=== PATIENT | female | born 1965 | race Asian ===

== ENCOUNTER 2018-09-03 14:30 | Day surgery (SDC) | payer OTHER, SELFPAY ==
--- NOTE | 2018-09-03 | PATH_ITS ---
[facility] Accession Number: [id number] . 01 Material submitted: . PART A: POLYP AT 110CM PART B: POLYP AT 100CM PART C: POLYP AT 70CM . 02 Diagnosis: A. Colon, Polyp at 110 cm, Biopsy: Tubular adenoma. . B. Colon, Polyp at 100 cm, Biopsy: Tubular adenoma. . C. Colon, Polyp at 70 cm, Biopsy: Colonic mucosa with a prominent benign lymphoid aggregate and mild distortion of the architecture. Negative for dysplasia and malignancy. Additional levels were examined. MRV/09/06/2018 . 02 Electronically signed: . Rosa Isela France MD, Pathologist NPI- [id number] . 01 Gross description: . Part A: POLYP AT 110CM: Received in formalin is 1 fragment(s) of ferrer, soft tissue measuring 0.6 x 0.4 x 0.2 cm submitted entirely in 1 cassette(s) Part B: POLYP AT 100CM: Received in formalin is 1 fragment(s) of ferrer, soft tissue measuring 0.5 x 0.3 x 0.3 cm submitted entirely in 1 cassette(s) Part C: POLYP AT 70CM: Received in formalin are multiple fragment(s) of ferrer, soft tissue measuring 1.0 x 0.4 x 0.2 cm in aggregate submitted entirely in 1 cassette(s) /CKI /CKI . 02 Pathologist provided ICD-10: D12.6 . 02 CPT . 099160, [id number], 966165 Performed at: 01 [facility] [address], [place], [place] [id number] MD Twan Navarro MD Phone: [phone] Performed at: 02 [facility] [address] [place] [id number] MD Rosa Isela France MD Phone: [phone]
[2018-09-03 14:51] VITALS: BP 126/84; PULSE 88; RESP 16; TEMP 37; O2SAT 99; BMI 27.9
[2018-09-03] MEDS: SODIUM CHLORIDE 0.9% 1,000 ML 70 ML IV (15:22)
--- NOTE | 2018-09-03 15:33 | PM.HP.1 ---
History of Present Illness Date Patient Seen: 09/03/18 Time Patient Seen: 15:34 Chief complaint: [id number] Narrative: very pleasant and remarkably healthy 53-year-old lady here for her 1st screening colonoscopy. She denies any problems symptoms related to the function of her GI tract. She denies any family history of colon or GI malignancy. She reports she needs colonoscopy as part of a health maintenance program. Patient History Social History household members: spouse Family & Social History Social History: household members spouse Meds Home Medications Medication Instructions Recorded Confirmed Type No Known Home Medications 09/03/18 09/03/18 History Allergies Allergy/AdvReac Type Severity Reaction Status Date / Time No Known Drug Allergies Allergy Verified 09/03/18 14:47 Review of Systems Review of Systems All systems reviewed & are unremarkable except as noted in HPI and below Exam Vital Signs (past 8 hours): - 09/03/18 14:51 Temperature 98.6 F Pulse Rate 88 Respiratory Rate 16 Blood Pressure 126/84 Pulse Oximetry 99 Oxygen Delivery Method Room Air Narrative Exam Narrative: Very pleasant, well-nourished, and well-developed lady in no distress HEENT: Normocephalic and atraumatic, pupils equal round reactive to light accommodation with anicteric sclera lungs: Clear to auscultation bilaterally Heart: Regular rate and rhythm without murmur rub or gallop abdomen: Soft, nontender, active bowel sounds extremities: Warm and well perfused without edema Assessment & Plan Assessment & Plan narrative: screening colonoscopy in the setting of a very healthy 53-year-old lady. We discussed the risks and benefits of the procedure and the patient has expressed a desire to complete it today.
[2018-09-03] MEDS: fentaNYL 250 MCG/5 ML INJ IV (15:53)
[2018-09-03] MEDS: MIDAZOLAM 5 MG/5 ML VIAL IV (15:54)
--- NOTE | 2018-09-03 16:01 | PM.OP.1 ---
Operative Date/Time/Diagnoses Date of procedure: 09/03/18 Time of procedure: 16:01 Pre-op diagnosis: Screening Post-op diagnosis: same Procedure & Clinicians Procedure: colonoscopy to the cecum with cold forceps polypectomy x3 Same procedure as scheduled: Yes Indications: no prior colonoscopy Surgeon: Zoë Carbone Anesthesia Type: Sedation ( Versed 5 mg; fentanyl 150 mcg) Operative Notes Findings: 1. Excellent prep 2. Diminutive polyp at 110 cm removed with cold forceps and retained for pathology 3. Diminutive polyp at 100 cm removed with cold forceps and retained for pathology 4. 4 mm polyp at 70 cm removed with cold forceps and retained for pathology 5. Olivera diverticulosis noted. Mostly large pockets scattered throughout the colon. Closure Type: not applicable Specimen(s): other Estimated Blood Loss (mL): 3 Procedure in detail: After obtaining informed consent, the patient was brought to the GI suite and placed in the left lateral decubitus position on the examination table. After placement of appropriate monitors, the patient was given incremental doses of Versed and Fentanyl until an appropriate level of sedation was achieved. A time out was held per SCOAP protocol. A digital rectal examination was performed and did not reveal any masses or obstructing lesions. The colonoscope was gently passed into the patient's anus and the entire colon navigated to the level of the cecum with minimal difficulty. Once in the cecum, the scope was withdrawn being sure to go before and beyond all mucosal folds and prominences and get an excellent examination. The findings are noted above. At the level of the rectal vault, the scope was retroflexed and the internal anal canal was examined. The scope was straightened and air aspirated from the colon. The instrument was removed from the patient's body and the procedure was concluded. The patient was allowed to awaken from sedation without difficulty and taken to the post-anesthesia care unit in good condition. total sedation time 24 min total withdrawal time 14 min Complications: none Condition: stable Disposition: PACU Plan for aftercare: 1. Discharge to home 2. Plan for next colonoscopy in 5 years or as clinically indicated 3. We will contact you with final pathology and any additional recommendations
[2018-09-03 16:05] VITALS: BP 103/70; PULSE 74; RESP 15; TEMP 35.9; O2SAT 97
[2018-09-03 16:10] VITALS: BP 100/63; PULSE 74; RESP 16; O2SAT 97
[2018-09-03 16:15] VITALS: BP 103/69; PULSE 74; RESP 15; O2SAT 98
[2018-09-03 16:27] VITALS: BP 105/68; PULSE 76; RESP 15; TEMP 36.2; O2SAT 99
--- NOTE | 2018-09-03 16:40 | SUR.PHASEII ---
1627 Arrived in [facility], very drowsy, has difficulty holding eyes open. Spouse to bedside. Will give patient time to rest. Call light given. Fluids at bedside.
[2018-09-03 17:00] VITALS: BP 107/68; PULSE 71; RESP 12; TEMP 36.6; O2SAT 100
--- NOTE | 2018-09-03 17:05 | SUR.PHASEII ---
1700 sitting up in bed, drank remainder of juice, feeling much more awake, states that she feels ready to go home. Instructions reviewed; IV dc'd after VS taken.
== END 2018-09-03 17:12 | disposition home or self-care (01) ==
PROVIDERS: PCP Family Medicine; Visit Provider Surgery
PROC: 0DJD8ZZ Inspection of Lower Intestinal Tract, Via Natural or Artificial Opening Endoscopic (ICD-10-PCS; CPT 45378; principal; 2018-09-03 16:00)
DX: Z12.11 Encounter for screening for malignant neoplasm of colon (principal); K57.30 Diverticulosis of large intestine without perforation or abscess without bleeding; D12.6 Benign neoplasm of colon, unspecified
CPT/HCPCS: 45380; 88305; 99152; 99153; J2250; J3010

== ENCOUNTER 2020-08-15 13:33 | Emergency (ER) | payer OTHER, SELFPAY ==
[2020-08-15 13:38] VITALS: BP 168/97; PULSE 93; RESP 16; TEMP 37.2; O2SAT 97; BMI 27.3
--- NOTE | 2020-08-15 13:47 | PC.NURSE ---
patient unable to open right eye due to pain. she reports she has a corneal abrasion thats getting worse. 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
[2020-08-15] MEDS: PROPARACAINE 0.5% OPHTH SOL 2 DROPS EYE-RIGHT (13:51)
[2020-08-15] MEDS: FLUORESCEIN 1 MG STRIP EYE-LEFT (13:52)
[2020-08-15] MEDS: TET,DIPH,PERTUSS(ACELL),VAC/PF 0.5 ML SYRINGE IM (13:52)
--- NOTE | 2020-08-15 14:15 | ED_ITS ---
HPI - Eye Problem <TENNILLE Mckeon - Last Filed: 08/15/20 14:46> General Chief complaint: Eye Problems Stated complaint: RIGHT EYE CANT OPEN/RED / HAZEY Time Seen by Provider: 08/15/20 13:34 Source: patient Mode of arrival: Ambulatory Limitations: no limitations History of Present Illness HPI Narrative: This is a 55 year female, nonsmoker, who has past medical history significant for corneal abrasion presents to ED with chief complain of right eye pain, eyelid swellings, photosensitivity for last 3 days. Patient states pain started 3 days ago mildly and became significantly worse yesterday and when she woke up this morning it was almost unbearable. Patient has been using sunglasses due to photophobia. Patient denies injury to affected eye, has history of diabetes, glaucoma, or hypertension. However, she states has been cleaning and dusting alot. She uses normal saline eye gel and refresh eyedrops daily. Patient does not use contact lenses but wear glasses. Patient had taken Advil 1 tab 1 hour before coming into ED. Patient has small amount of Ofloxacillin left from previous corneal abrasion but had not started on this medication. Unsure of last Tentanus vaccination. Related Data Home Medications Medication Instructions Recorded Confirmed No Known Home Medications 09/03/18 09/03/18 Allergies Allergy/AdvReac Type Severity Reaction Status Date / Time No Known Drug Allergies Allergy Verified 08/15/20 13:40 Review of Systems <TENNILLE Mckeon - Last Filed: 08/15/20 14:46> Review of Systems Narrative: General: Denies fever, chills, fatigue, malaise, sweats. HEENT: See HPI Respiratory: Denies dyspnea, cough, wheezing, hemoptysis, sputum. Cardiovascular: Denies chest pain, palpitations, orthopnea, edema. Gastrointestinal: Denies nausea, vomiting, abdominal pain, diarrhea, constipation, melena. Skin: See HPI Neurologic: Denies weakness, headache, numbness, change in speech, confusion, seizures, incoordination. Patient History <TENNILLE Mckeon - Last Filed: 08/15/20 14:46> Social History household members: spouse Smoking Status: Never smoker Smoking Status: Never smoker alcohol intake frequency: a few times a month Substance Use Type: does not use Exam <Jorden RogelioTENNILLE bonilla - Last Filed: 08/15/20 14:46> Narrative Exam Narrative: General appearance: well developed, well nourished, in no acute distress. Head: normocephalic, atraumatic, no scalp lesions, non-tender. ENT: Hearing grossly intact. Airway patent. Neck/Thyroid: neck supple, full range of motion, no visible masses or meningeal signs. No JVD, non-tender without lymphadenopathy. Skin: no suspicious rashes, lesions over visible areas. Warm and dry and appropriate color for ethnicity. Heart: no clubbing, no cyanosis, no edema. S1 and S2 normal. RRR w/o murmurs, clicks, or bruits. Lungs: Breathing even and unlabored. No stridor. No accessory muscles used. Able to speak in full sentences. Chest: normal shape and expansion. Abdomen: non-obese, non-distended. Neurologic: alert and oriented. Cognitive exam, [employer] STRIPPER and PNS grossly intact on informal exam. Psych: good eye contact, normal affect. Initial Vital Signs Initial Vital Signs: Vital Signs Temperature 98.9 F 08/15/20 13:38 Pulse Rate 93 H 08/15/20 13:38 Respiratory Rate 16 08/15/20 13:38 Blood Pressure 168/97 H 08/15/20 13:38 Pulse Oximetry 97 08/15/20 13:38 Eyes Alignment and Position: alignment normal Periorbital: periorbital findings normal Eyelids: eyelid abnormality right upper eyelid swelling Conjunctivae: conjunctival abnormality right conjunctival chemosis Sclera: scleral abnormality right scleral injection Cornea: corneas abnormal on the right abrasion and fluorescein used (uptake in slightly right side to mid pupil) EOM: EOM intact bilaterally Direct ophthalmoscopy: normal light reflex Other: IOP on right eye 18 Visual Acuity 20/50 on right, 20/40 left, 20/40 bilateral <Jamey Rivera DO - Last Filed: 08/15/20 16:07> Initial Vital Signs Initial Vital Signs: Vital Signs Temperature 98.9 F 08/15/20 13:38 Pulse Rate 93 H 08/15/20 13:38 Respiratory Rate 16 08/15/20 13:38 Blood Pressure 168/97 H 08/15/20 13:38 Pulse Oximetry 97 08/15/20 13:38 Scores <[facility] - Last Filed: 08/15/20 14:46> GCS Cathleen coma scale eye opening: Spontaneous Cathleen coma scale verbal response: Orientated Cathleen coma scale motor response: Obey commands Earling coma scale total score: 15 Course <[facility] - Last Filed: 08/15/20 14:46> Orders Ordered: Discontinued Medications Acetaminophen (Acetaminophen 325 Mg Tablet) 650 mg PO NOW ONE Stop: 08/15/20 14:15 Last Admin: 08/15/20 14:20 Dose: Not Given Documented by: LESTER Diphtheria/Tetanus/Acell Pertussis (Tet,Diph,Pertuss(Acell),Vac/Pf 0.5 Ml Syringe) 0.5 ml IM .ONCE ONE Stop: 08/15/20 13:44 Last Admin: 08/15/20 13:52 Dose: 0.5 ml Documented by: LESTER Fluorescein Sodium (Fluorescein 1 Mg Strip) 1 mg EYE-LEFT NOW ONE Stop: 08/15/20 13:44 Last Admin: 08/15/20 13:52 Dose: 1 mg Documented by: LESTER Ofloxacin (Ofloxacin 0.3% Ophth 5 Ml) 1 drops EYE-RIGHT NOW ONE Stop: 08/15/20 14:10 Last Admin: 08/15/20 14:19 Dose: 1 drops Documented by: LESTER Proparacaine HCl (Proparacaine 0.5% Ophth [place]il[place]) 2 drops EYE-RIGHT NOW ONE Stop: 08/15/20 13:44 Last Admin: 08/15/20 13:51 Dose: 1 drop Documented by: LESTER Vital Signs Vital signs: Vital Signs - 8 hr 08/15/20 13:38 Temperature 98.9 F Pulse Rate 93 H Respiratory Rate 16 Blood Pressure 168/97 H Pulse Oximetry 97 <Jamey Rivera DO - Last Filed: 08/15/20 16:07> Orders Ordered: Discontinued Medications Acetaminophen (Acetaminophen 325 Mg Tablet) 650 mg PO NOW ONE Stop: 08/15/20 14:15 Last Admin: 08/15/20 14:20 Dose: Not Given Documented by: LESTER Diphtheria/Tetanus/Acell Pertussis (Tet,Diph,Pertuss(Acell),Vac/Pf 0.5 Ml Syringe) 0.5 ml IM .ONCE ONE Stop: 08/15/20 13:44 Last Admin: 08/15/20 13:52 Dose: 0.5 ml Documented by: LESTER Fluorescein Sodium (Fluorescein 1 Mg Strip) 1 mg EYE-LEFT NOW ONE Stop: 08/15/20 13:44 Last Admin: 08/15/20 13:52 Dose: 1 mg Documented by: LESTER Ofloxacin (Ofloxacin 0.3% Ophth 5 Ml) 1 drops EYE-RIGHT NOW ONE Stop: 08/15/20 14:10 Last Admin: 08/15/20 14:19 Dose: 1 drops Documented by: LESTER Proparacaine HCl (Proparacaine 0.5% Ophth [place]il[place]) 2 drops EYE-RIGHT NOW ONE Stop: 08/15/20 13:44 Last Admin: 08/15/20 13:51 Dose: 1 drop Documented by: LESTER Vital Signs Vital signs: Vital Signs - 8 hr 08/15/20 13:38 Temperature 98.9 F Pulse Rate 93 H Respiratory Rate 16 Blood Pressure 168/97 H Pulse Oximetry 97 MDM - Eye Problem <Jorden Ellison FIELD MARKETING MANAGER - Last Filed: 08/15/20 14:46> Differential Diagnosis Differential diagnosis: Likely corneal abrasion and corneal ulcer Medical Records Attestation: I reviewed the patient's medical records. [facility] Narrative Medical decision making narrative: This is a 55 year female who presents to ED with right eye discomfort which started 3 days ago which became worse since yesterday. Patient has history of corneal abrasion twice in the past and feels the same. Patient denies injury, rubbing but reports has been dusting and cleaning recently. Physical exam appreciated swelling to right upper eyelid swelling, ecchymosis to conjunctiva, injected sclera and uptake appreciated slightly right to mid pupil. IOP within normal of 18. Mildly decreased vision on right-sided as 20/50, left side as 20/40 and she usually uses glasses. Patient advised to use [id number] Tylenol and or Motrin as needed for discomfort and treated with ofloxacillin which she tolerated well in the past. States had issues with erythromycin ointment. Patient advised to follow-up with livery car driver at [facility] next 1-2 days for re-evaluation and possible further treatment for corneal abrasion or early corneal ulceration. Return precautions discussed with patient and she verbalized understanding and in agreement with the treatment plan. Discharge Plan Departure Patient Disposition: Home Clinical Impression: Corneal abrasion Qualifiers: Encounter type: initial encounter Laterality: right Qualified Code(s): S05.01XA - Injury of conjunctiva and corneal abrasion without foreign body, right eye, initial encounter Instructions: DI for Corneal Abrasion Activity Restrictions/Additional Instructions: You have been diagnosed with [right eye cornea abrasion. Please continue to use ofloxacillin 2 drops 4 times a day and follow-up with livery car driver in next 1-2 days.]. What to do: *Take your medications as directed. You can take [id number] Tylenol and or Motrin as needed for discomfort. Tylenol 650 mg up to 3 to 4 times a day as needed. Ibuprofen 400 mg up to 3 to 4 times a day as needed for pain with food to decrease GI irritations. *Follow up with your primary care provider in 2-3 days, call for an appointment. Let them know you were seen in the ED and that we asked you to be seen in follow up. *Return to ED if you have any new, worsening, or concerning symptoms, such as [worsening pain, vision, chest pain, unable to tolerate fluids, fever, or any acute concerns]. Prescriptions: No Action No Known Home Medications RF: 0 Referrals: Rosalie Acosta DO [Primary Care Provider] - <Jamey Rivera DO - Last Filed: 08/15/20 16:07> Cosign ED Attending Helenaature Attestation: I was immediately available in the department for consultation. This documentation has been reviewed and I agree with assessment and plan. Supervised by Jamey Rivera DO
[2020-08-15] MEDS: OFLOXACIN 0.3% OPHTH 5 ML 1 DROPS EYE-RIGHT (14:19)
== END 2020-08-15 14:21 | disposition home or self-care (01) ==
PROVIDERS: Emergency Provider Nurse Practitioner Family; PCP Family Medicine
DX: S05.01XA Injury of conjunctiva and corneal abrasion without foreign body, right eye, initial encounter (principal); H53.149 Visual discomfort, unspecified; Z23 Encounter for immunization
CPT/HCPCS: 90471; 99281; 99283; 90715

== ENCOUNTER → 2020-10-27 13:21 | Outpatient (CLI) | payer OTHER, SELFPAY ==
--- NOTE | 2020-10-27 | DI.MG.S_ITS ---
BILATERAL DIGITAL DIAGNOSTIC MAMMOGRAM 3D/2D: 10/27/2020 CLINICAL: Left breast pain. Comparison is made to exams dated: 04/21/2015 mammogram, 02/05/2013 mammogram, and 11/08/2011 mammogram - [facility]. There are scattered fibroglandular elements in both breasts. No significant masses, calcifications, or other findings are seen in either breast. Specifically, no finding to correspond to the patient's pain or palpable abnormality. IMPRESSION: INCOMPLETE: NEEDS ADDITIONAL IMAGING EVALUATION There is no abnormality seen in the left breast to correspond with the pain or palpable abnormality in the axillary tail. Ultrasound is recommended for full evaluation of this area. This was performed immediately following this exam. This exam was interpreted at Station ID: [id number]. NOTE: For mammograms, a report in lay terms will be sent to the patient. Approximately 15% of breast malignancies will not be visualized mammographically. In the management of a palpable breast mass, a negative mammogram must not discourage biopsy of a clinically suspicious lesion. Electronically Signed By: Adwoa dunlap/:10/27/2020 14:17:37 ACR BI-RADS Category 0: Incomplete [id number]
--- NOTE | 2020-10-27 | DI.US.S_ITS ---
LIMITED ULTRASOUND OF LEFT BREAST: 10/27/2020 CLINICAL: Tender lump left breast. Comparison is made to exams dated: 10/27/2020 mammogram - [facility], 04/21/2015 mammogram, 02/05/2013 mammogram, and 11/08/2011 mammogram - [facility]. Real-time ultrasound of the left breast 2 o'clock region was performed. Galvez scale images of the real-time examination were reviewed. No significant abnormalities were seen sonographically in the left breast. Specifically, no finding to explain the patient's pain or palpable abnormality. IMPRESSION: NEGATIVE There is no sonographic correlate to the patient's palpable abnormality or pain and no evidence of malignancy. Return to annual mammogram screening schedule is recommended. Findings and recommendations were conveyed to the patient at time of exam. This exam was interpreted at Station ID: [id number]. Electronically Signed By: Adwoa dunlap/:10/27/2020 14:21:07 letter sent: Normal Exam Ultrasound BI-RADS: 1 Negative
== END ==
PROVIDERS: PCP Family Medicine; Referring Provider Family Medicine; Visit Provider Family Medicine
DX: N64.4 Mastodynia (principal); R92.8 Other abnormal and inconclusive findings on diagnostic imaging of breast
CPT/HCPCS: 76642; 77066; G0279

== ENCOUNTER 2020-12-08 16:19 | Emergency (ER) | payer OTHER, SELFPAY ==
[2020-12-08 16:24] VITALS: BP 129/65; PULSE 70; RESP 18; TEMP 37.1; O2SAT 99
--- NOTE | 2020-12-08 16:29 | DI.RAD.S_ITS ---
PROCEDURE: XR CHEST 1V INDICATIONS: Chest pain TECHNIQUE: One view of the chest was acquired. COMPARISON: None. FINDINGS: Surgical changes and devices: None. Lungs and pleura: Eventration of the left hemidiaphragm. Lungs are clear. No pleural effusions or pneumothorax. Mediastinum: Mediastinal contours appear normal. Heart size is normal. Bones and chest wall: No suspicious bony lesions. Overlying soft tissues appear unremarkable. Air-filled loops of bowel are noted underneath the left hemidiaphragm. IMPRESSION: Chest without acute cardiopulmonary abnormalities. No focal airspace disease. Dictated by: Pasquale Muñiz M.D. on 12/08/2020 at 16:51 Approved by: Pasquale Muñiz M.D. on 12/08/2020 at 16:52
[2020-12-08 16:42] LABS: Add Manual Diff / Slide Review NO; Basophils Absolute Auto 100 /uL (0-100); Eosinophils Absolute Auto 200 /uL (0-450); Eosinophils Percent Auto 2.3 % (2-4); Hematocrit 42.7 % (36-46); Hemoglobin 14.4 g/dL (12.0-16.0); Lymphocytes Absolute Auto 3300 /uL (1100-4500); Lymphocytes Percent Auto 39.4 % (25-40); Mean Corpuscular HGB Conc 33.7 % (30-36); Mean Corpuscular Hemoglobin 30.6 PG (26-34); Mean Corpuscular Volume 90.9 fL (80-100); Monocytes Absolute Auto 600 /uL (0-900); Monocytes Percent Auto 7.1 % (3-14); Neutrophils Absolute Auto 4200 /uL (1500-7000); Neutrophils Percent Auto 50.2 % (50-75); Platelet Count 404 X10^3/uL (150-400); Red Cell Distribution Width 13.3 % (11.6-14.8); White Blood Cell Count 8.4 X10^3/uL (4.5-11.0)
--- NOTE | 2020-12-08 16:51 | ED.CHESTPAIN ---
HPI - Chest Pain General Chief Complaint: Chest Pain Stated Complaint: CHEST PAIN Time Seen by Provider: 12/08/20 16:25 Source: patient Mode of arrival: Ambulatory Limitations: no limitations History of Present Illness HPI narrative: Patient is a 55-year-old female. No diagnosed medical problems. Does not take any medications. Here for evaluation of occasional left-sided chest pressure over the past couple days. She states that has occurred multiple times each of the past several days. She is not currently having any symptoms. She states that when the event happens it is a fairly sudden onset. Last approximately half an hour then gradually resolves. It does radiate to her left arm and up the left jaw. When the symptoms are happening she does become somewhat short of breath which resolves when the symptoms resolved. Not worse with palpation. Not worse with moving her left arm. Related Data Home Medications Medication Instructions Recorded Confirmed No Known Home Medications 09/03/18 09/03/18 Previous Rx's Medication Instructions Recorded meclizine 25 mg PO TID PRN #14 tab 12/08/20 Allergies Allergy/AdvReac Type Severity Reaction Status Date / Time No Known Drug Allergies Allergy Verified 08/15/20 13:40 Review of Systems Constitutional Constitutional: Denies fever(s) and Denies headache(s) ENT Ears, Nose, Mouth, and Throat: Denies headache(s) Cardiovascular Cardiovascular: Reports chest pain, Reports radiating jaw, neck or arm pain and Reports dyspnea (With the chest discomfort) Respiratory Respiratory: Reports dyspnea (With the chest discomfort) Gastrointestinal Gastrointestinal: Denies abdominal pain, Denies nausea and Denies vomiting Genitourinary Genitourinary: Denies dysuria Genitourinary: Denies dysuria Musculoskeletal Musculoskeletal: Reports system reviewed and no additional complaints, except as documented Integumentary/Breasts Skin/Breast: Reports system reviewed and no additional complaints, except as documented Neurologic Neurologic: Reports system reviewed and no additional complaints, except as documented and Denies headache(s) Hematologic/Lymphatic On Anticoagulants: No Allergic/Immunologic Allergic/Immunologic: Reports system reviewed and no additional complaints, except as documented Patient History Medical History Patient denies medical problems Social History household members: spouse Smoking Status: Never smoker Smoking Status: Never smoker alcohol intake frequency: a few times a month Substance Use Type: does not use Exam Initial Vital Signs Initial Vital Signs: Vital Signs Temperature 98.7 F 12/08/20 16:24 Pulse Rate 70 12/08/20 16:24 Respiratory Rate 18 12/08/20 16:24 Blood Pressure 129/65 12/08/20 16:24 Pulse Oximetry 99 12/08/20 16:24 Const General: cooperative, comfortable and well developed Limitations: mental status not altered HENMT Head: normal to inspection and normocephalic Resp Effort & Inspection: normal respiratory effort Auscultation: clear to auscultation bilaterally Cardio Rate: regular rate Rhythm: regular rhythm GI Inspection: non-distended Palpation: soft Skin Lesions: no lesions Rashes: no rashes Neuro General: patient alert, patient awake and patient oriented x3 Cognition: normal cognition Speech: speech normal Extrem General: normal to inspection, capillary refill normal and No edema Psych Appearance: grossly normal and well kempt Scores HEART Score Heart Score history: Moderately Suspicious Heart Score EKG: Normal Heart Score Age: 45-64 years old Heart Score risk factors: No known risk factors Heart Score troponin: < or = to normal limit Heart Score Total: 2 Course Orders Ordered: ED Orders 12/08/20 16:29 XR chest 1V Stat 12/08/20 16:30 Complete Blood Count AUTO DIFF Stat Comprehensive Metabolic Panel Stat Lipase Stat Troponin & CK Cardiac Panel Stat EKG-12 Lead Stat Vital Signs Vital signs: Vital Signs - 8 hr 12/08/20 16:24 Temperature 98.7 F Pulse Rate 70 Respiratory Rate 18 Blood Pressure 129/65 Pulse Oximetry 99 MDM - Chest Pain Lab Data Attestation: I reviewed the patient's lab results. Result diagrams: 12/08/20 16:30 12/08/20 16:30 Labs: Lab Results 12/08/20 12/08/20 Range/Units 16:30 16:30 WBC 8.4 (4.5-11.0) X10^3/uL RBC 4.70 (4.0-5.2) X10^6/uL Hgb 14.4 (12.0-16.0) g/dL Hct 42.7 (36-46) % MCV 90.9 (80-100) fL MCH 30.6 (26-34) PG MCHC 33.7 (30-36) % RDW 13.3 (11.6-14.8) % Plt Count 404 H (150-400) X10^3/uL Neut % (Auto) 50.2 (50-75) % Lymph % (Auto) 39.4 (25-40) % [place] % (Auto) 7.1 (3-14) % Eos % (Auto) 2.3 (2-4) % Baso % (Auto) 1.0 (0-2) % Neut # (Auto) 4200 (7837-7179) /uL Lymph # (Auto) 3300 (9010-5830) /uL [place] # (Auto) 600 (0-900) /uL Eos # (Auto) 200 (0-450) /uL Baso # (Auto) 100 (0-100) /uL Sodium 139 (137-145) mmol/L Potassium 4.3 (3.4-5.1) mmol/L Chloride 103 (98-107) mmol/L Carbon Dioxide 26 (22-32) mmol/L BUN 14 (7-17) mg/dL Creatinine 0.65 (0.52-1.04) mg/dL Estimated GFR > 60.0 (>60) mL/min BUN/Creatinine Ratio 21.5 (6-22) Glucose 91 (70-100) mg/dL Calcium 9.3 (8.4-10.2) mg/dL Total Bilirubin 0.9 (0.2-1.3) mg/dL AST 26 (14-36) IU/L ALT 21 (<35) IU/L Alkaline Phosphatase 98 (38-126) U/L Total Creatine Kinase 47 (30-135) U/L CK-MB (CK-2) TNP CK-MB (CK-2) Rel Index TNP Troponin I < 0.012 (0.01-0.034) ng/mL Total Protein 7.7 (6.3-8.2) g/dL Albumin 4.5 (3.5-5.0) g/dL Globulin 3.2 (1.7-4.1) g/dL Albumin/Globulin Ratio 1.4 (1.0-2.8) Lipase 142 (23-300) U/L Imaging Data Chest x-ray: Radiologist's Impression: [address] [id number] ReportSigned Patient: Lydia Brasher [facility]#: [id number]: 1965Acct:[id number]/Sex: 55 / FDate of Service: 12/08/20Loc: EDAccession Number: [id number] Procedure: XR chest 1V Ordering Provider: Lonny Pop D.O. PROCEDURE: XR CHEST 1V INDICATIONS: Chest pain TECHNIQUE: One view of the chest was acquired. COMPARISON: None. FINDINGS: Surgical changes and devices: None. Lungs and pleura: Eventration of the left hemidiaphragm. Lungs are clear. No pleural effusions or pneumothorax. Mediastinum: Mediastinal contours appear normal. Heart size is normal. Bones and chest wall: No suspicious bony lesions. Overlying soft tissues appear unremarkable. Air-filled loops of bowel are noted underneath the left hemidiaphragm. IMPRESSION: Chest without acute cardiopulmonary abnormalities. No focal airspace disease. Dictated by: Pasquale Muñiz M.D. on 12/08/2020 at 16:51 Approved by: Pasquale Muñiz M.D. on 12/08/2020 at 16:52 ECG Data Attestation: I personally reviewed and interpreted this ECG as follows: Prior ECG tracings: not available for review Interpretation: Sinus rhythm Ventricular rate is 65 Normal axis Normal QRS Normal QTC No ST T wave changes MDM Narrative Medical decision making narrative: Patient has no diagnosed medical problems. Her vital signs to include her blood pressure are very reassuring. She has a low risk heart score. Troponin is negative. Has a normal EKG. Had a long discussion with her and her at bedside regarding options to include being discharged now we did discuss her risk factors for coronary artery disease. We discussed another option and that would be to stay here in the emergency department for a 2nd troponin and then be discharged. The 3rd option to be is to admit her to the hospital in order to obtain risk stratification testing. After this discussion the patient opted to be discharged home. She did express the risks and benefits of this. She was instructed that she needed to contact her primary doctor tomorrow so that a outpatient stress test could be ordered. She also states that she occasionally has episodes of lightheadedness and dizziness that is positional when she moves her head. I do suspect that this is peripheral cause and I have low suspicion for CVA. We did discuss the use of antihistamines. Will also send home with a prescription for meclizine. She was given return precautions. She expressed understanding agreement. Discharge Plan Departure Patient Disposition: Home Clinical Impression: Atypical chest pain, Lightheadedness Instructions: DI for Atypical Chest Pain Activity Restrictions/Additional Instructions: Like we discussed I do recommend that you contact your primary doctor tomorrow to discuss the indications for an outpatient stress test. Also recommend you start taking an antihistamine such as Claritin or Marlene or Zyrtec. These medications can be purchased [id number]. Return to the emergency department for any new or worsening symptoms. Prescriptions: New meclizine 25 mg tablet 25 mg PO TID PRN (Reason: dizziness) Qty: 14 RF: 0 No Action No Known Home Medications RF: 0 Referrals: Rosalie Acosta DO [Primary Care Provider] -
[2020-12-08 17:03] LABS: Alanine Aminotransferase 21 IU/L (<35); Albumin 4.5 g/dL (3.5-5.0); Albumin Globulin Ratio 1.4 (1.0-2.8); Alkaline Phosphatase 98 U/L (38-126); Aspartate Aminotransferase 26 IU/L (14-36); BUN Creatinine Ratio 21.5 (6-22); Bilirubin Total 0.9 mg/dL (0.2-1.3); Blood Urea Nitrogen 14 mg/dL (7-17); Calcium 9.3 mg/dL (8.4-10.2); Carbon Dioxide 26 mmol/L (22-32); Chloride 103 mmol/L (98-107); Creatine Kinase 47 U/L (30-135); Estimated Glomerular Filt Rate > 60.0 mL/min (>60); Globulin 3.2 g/dL (1.7-4.1); Glucose 91 mg/dL (70-100); HEMOLYSIS < 15 (0-50); Lipase 142 U/L (23-300); Potassium 4.3 mmol/L (3.4-5.1); Sodium 139 mmol/L (137-145); Total Protein 7.7 g/dL (6.3-8.2)
[2020-12-08 17:14] LABS: Troponin I < 0.012 ng/mL (0.01-0.034)
[2020-12-08 17:57] VITALS: BP 122/65; PULSE 64; RESP 18; O2SAT 98
== END 2020-12-08 17:59 | disposition home or self-care (01) ==
PROVIDERS: Emergency Provider Emergency Medicine; PCP Family Medicine
DX: R07.89 Other chest pain (principal); R42 Dizziness and giddiness
CPT/HCPCS: 36415; 71045; 80053; 82550; 83690; 84484; 85025; 93005; 99284

== ENCOUNTER → 2021-05-03 | Outpatient (CLI) | payer OTHER, SELFPAY ==
--- NOTE | 2021-05-03 14:56 | DI.RAD.S_ITS ---
PROCEDURE: XR CHEST 2V INDICATIONS: chronic cough, ex smoker TECHNIQUE: 2 views of the chest were acquired. COMPARISON: [facility], CR, XR CHEST 1V, 12/08/2020, 16:32. FINDINGS: Surgical changes and devices: None. Lungs and pleura: Streaky opacities noted in the lung bases bilaterally which likely represent atelectasis. No pleural effusions or pneumothorax. Mediastinum: Mediastinal contours are normal. Heart size is normal. Bones and chest wall: No suspicious bony abnormalities. Soft tissues appear unremarkable. IMPRESSION: No acute cardiopulmonary disease process. Dictated by: Regi Polk MD, PhD on 05/05/2021 at 15:19 Approved by: Regi Polk MD, PhD on 05/05/2021 at 15:20
[2021-05-03 17:36] LABS: Cholesterol 269 mg/dL (140-199); HDL Cholesterol 45 mg/dL (40-60); Triglycerides 480 mg/dL (35-150); Uric Acid 5.5 mg/dL (2.5-6.2)
[2021-05-03 18:05] LABS: TSH w/ Reflex to FT4 1.22 uIU/mL (0.47-4.68)
== END ==
LOC: RAD 14:56
PROVIDERS: PCP Family Medicine; Referring Provider Family Medicine; Visit Provider Family Medicine
DX: Z00.00 Encounter for general adult medical examination without abnormal findings (principal); R05.3 Chronic cough
CPT/HCPCS: 36415; 71046; 80061; 84443; 84550

== ENCOUNTER → 2022-09-16 11:24 | Outpatient (CLI) | payer OTHER, SELFPAY ==
--- NOTE | 2022-09-16 | DI.MG.S_ITS ---
BILATERAL DIGITAL SCREENING MAMMOGRAM 3D/2D WITH CAD: 09/16/2022 CLINICAL: Routine screening. Family history of breast cancer. Comparison is made to exam dated: 10/27/2020 mammogram - [facility]. There are scattered areas of fibroglandular density in both breasts (category b / 25%-50% glandular tissue). Current study was also evaluated with a Computer Aided Detection (CAD) system. No significant masses, calcifications, or other findings are seen in either breast. There has been no significant interval change. IMPRESSION: NEGATIVE There is no mammographic evidence of malignancy. A 1 year screening mammogram is recommended. Based on the Tyrer Cuzick model (a risk assessment model) the patient's lifetime risk is 18.9% and her 10 year risk is 7.6%. According to the ACR, ACS, and NCCN guidelines, an annual breast MRI exam along with mammogram is recommended if the patient's lifetime risk is 20% or greater. This exam was interpreted at Station ID: [id number]. NOTE: For mammograms, a report in lay terms will be sent to the patient. Approximately 15% of breast malignancies will not be visualized mammographically. In the management of a palpable breast mass, a negative mammogram must not discourage biopsy of a clinically suspicious lesion. Electronically Signed By: Be brody/mer:09/18/2022 09:11:50 letter sent: Normal Exam ACR BI-RADS Category 1: Negative 3341F
== END ==
PROVIDERS: PCP Family Medicine; Referring Provider Family Medicine; Visit Provider Family Medicine
DX: Z12.31 Encounter for screening mammogram for malignant neoplasm of breast (principal); Z80.3 Family history of malignant neoplasm of breast
CPT/HCPCS: 77063; 77067

== ENCOUNTER → 2023-01-16 09:41 | Outpatient (CLI) | payer OTHER, SELFPAY ==
[2023-01-16 10:33] LABS: Add Manual Diff / Slide Review NO; Basophils Absolute Auto 0 /uL (0-100); Basophils Percent Auto 0.5 % (0-2); Eosinophils Absolute Auto 100 /uL (0-450); Eosinophils Percent Auto 1.8 % (2-4); Hematocrit 40.5 % (36-46); Hemoglobin 14.2 g/dL (12.0-16.0); Lymphocytes Absolute Auto 2300 /uL (1100-4500); Lymphocytes Percent Auto 38.5 % (25-40); Mean Corpuscular Hemoglobin 31.1 PG (26-34); Mean Corpuscular Volume 88.9 fL (80-100); Monocytes Absolute Auto 300 /uL (0-900); Monocytes Percent Auto 5.9 % (3-14); Neutrophils Absolute Auto 3200 /uL (1500-7000); Neutrophils Percent Auto 53.3 % (50-75); Platelet Count 379 X10^3/uL (150-400); Red Blood Cell Count 4.56 X10^6/uL (4.0-5.2); Red Cell Distribution Width 12.7 % (11.6-14.8); White Blood Cell Count 5.9 X10^3/uL (4.5-11.0)
[2023-01-16 11:00] LABS: Alanine Aminotransferase 22 IU/L (<35); Albumin 4.3 g/dL (3.5-5.0); Albumin Globulin Ratio 1.6 (1.0-2.8); Alkaline Phosphatase 74 U/L (38-126); Aspartate Aminotransferase 22 IU/L (14-36); BUN Creatinine Ratio 24.1 (6-22); Bilirubin Total 1.1 mg/dL (0.2-1.3); Blood Urea Nitrogen 13 mg/dL (7-17); Calcium 8.9 mg/dL (8.4-10.2); Carbon Dioxide 28 mmol/L (22-32); Chloride 101 mmol/L (98-107); Cholesterol 246 mg/dL (140-199); Estimated Glomerular Filt Rate > 60 mL/min (>60); Globulin 2.7 g/dL (1.7-4.1); Glucose 116 mg/dL (70-100); HDL Cholesterol 44 mg/dL (40-60); HEMOLYSIS < 15 (0-50); LDL Cholesterol Calculated 152 mg/dL (<100); Potassium 4.4 mmol/L (3.4-5.1); Sodium 138 mmol/L (137-145); Triglycerides 252 mg/dL (35-150); Uric Acid 5.5 mg/dL (2.5-6.2)
[2023-01-16 11:23] LABS: TSH w/ Reflex to FT4 0.78 uIU/mL (0.47-4.68)
== END ==
PROVIDERS: PCP Family Medicine; Referring Provider Family Medicine; Visit Provider Family Medicine
DX: Z00.00 Encounter for general adult medical examination without abnormal findings (principal); E78.1 Pure hyperglyceridemia
CPT/HCPCS: 36415; 80053; 80061; 84443; 84550; 85025

== ENCOUNTER 2023-03-18 09:06 | Emergency (ER) | payer OTHER, SELFPAY ==
[2023-03-18] VITALS (8 sets, daily range): BP systolic 120–198; BP diastolic 63–86; PULSE 66–82; RESP 14–22; TEMP 36.7; O2SAT 94–98; BMI 27.3
--- NOTE | 2023-03-18 09:19 | ED.NECK ---
HPI - Neck Pain/Injury General Chief Complaint: Neuro Symptoms/Deficit Stated Complaint: numbness/tingeling in LT arm/pain in head/neck Time Seen by Provider: 03/18/23 09:12 Source: patient Mode of arrival: Ambulatory Limitations: no limitations History of Present Illness HPI Narrative: Patient is a 57-year-old female who is here for evaluation of tingling to her left arm. She also states she is having some photophobia. Also tingling to the left side of her head. She states that yesterday she thought that maybe her left arm was somewhat weak but then it improved on its own. She woke up this morning at 0400 hours with the symptoms she presents with today. They been consistent since then. She denies chest pain or shortness of breath. No problems walking. No lower extremity tingling or weakness. Her right upper extremity is unremarkable. Related Data Home Medications Medication Instructions Recorded Confirmed Immune System Vitamin PO 08/11/22 09/12/22 ascorbic acid (vitamin C) PO 08/11/22 09/12/22 [id number] K PO 08/11/22 09/12/22 [Adults Multivitamin] Previous Rx's Medication Instructions Recorded albuterol sulfate 90 mcg/actuation 2 inh inhalation Q4-6H PRN asthma 01/22/23 breath activated powder inhaler #1 ea cyclobenzaprine 10 mg tablet 10 mg PO TID PRN muscle spasm #14 03/18/23 tabs Allergies Allergy/AdvReac Type Severity Reaction Status Date / Time No Known Drug Allergies Allergy Verified 03/18/23 09:23 Review of Systems Constitutional Constitutional: Reports system reviewed and no additional complaints, except as documented Eyes Eyes: Reports system reviewed and no additional complaints, except as documented ENT Ears, Nose, Mouth, and Throat: Reports system reviewed and no additional complaints, except as documented Cardiovascular Cardiovascular: Reports system reviewed and no additional complaints, except as documented Respiratory Respiratory: Reports system reviewed and no additional complaints, except as documented Musculoskeletal Musculoskeletal: Reports system reviewed and no additional complaints, except as documented Integumentary/Breasts Skin/Breast: Reports system reviewed and no additional complaints, except as documented Neurologic Neurologic: Reports system reviewed and no additional complaints, except as documented Hematologic/Lymphatic On Anticoagulants: No Patient History Medical History Atypical chest pain Benign paroxysmal positional vertigo Ear pain, left Hypertriglyceridemia Lightheadedness Patient denies medical problems Seasonal allergies Well adult exam Social History household members: spouse Smoking Status: Never smoker Smoking Status: Never smoker alcohol intake frequency: a few times a month Substance Use Type: does not use Exam Initial Vital Signs Initial Vital Signs: Vital Signs Temperature 98.1 F 03/18/23 09:17 Pulse Rate 72 03/18/23 09:17 Respiratory Rate 16 03/18/23 09:17 Blood Pressure 198/86 H 03/18/23 09:17 Pulse Oximetry 96 03/18/23 09:17 Oxygen Delivery Method Room Air 03/18/23 09:17 Const General: cooperative and No ill appearing HENMT Head: normal to inspection and normocephalic Face and sinus: normal facial exam Eyes General: Yes appearance normal, both eyes and all related structures Resp Effort & Inspection: normal respiratory effort Auscultation: clear to auscultation bilaterally Cardio Rate: regular rate Rhythm: regular rhythm Back/Spine/Pelvis Other: Left-sided cervical paraspinal tenderness Skin General: no rashes or lesions noted Neuro General: patient alert, patient awake, patient oriented x3 and moves all extremities Cranial Nerves: CN's II-XI intact bilaterally Cognition: normal cognition Speech: speech normal Sensory Exam: other (Decreased sensation to light touch left upper extremity, circumferential) Extrem Other: No gross deformities Course Orders Ordered: ED Orders 03/18/23 09:20 CT head/brain wo con Stat EKG-12 Lead Stat 03/18/23 09:26 Complete Blood Count AUTO DIFF Stat Comprehensive Metabolic Panel Stat Lipase Stat Troponin & CK Cardiac Panel Stat Discontinued Medications Cyclobenzaprine HCl (Cyclobenzaprine 10 Mg Tablet) 10 mg PO NOW ONE Stop: 03/18/23 09:55 Last Admin: 03/18/23 10:17 Dose: 10 mg Ketorolac Tromethamine (Ketorolac 30 Mg/Ml Vial) 30 mg IV NOW ONE Stop: 03/18/23 09:55 Last Admin: 03/18/23 10:17 Dose: 30 mg Vital Signs Vital signs: Vital Signs - 8 hr 03/18/23 09:17 03/18/23 09:17 03/18/23 09:17 Temperature 98.1 F Pulse Rate 72 82 Respiratory Rate 16 Blood Pressure 198/86 H 198/86 H Pulse Oximetry 96 96 Oxygen Delivery Method Room Air 03/18/23 09:26 03/18/23 09:26 03/18/23 09:30 Temperature Pulse Rate 75 69 Respiratory Rate Blood Pressure 191/64 H Pulse Oximetry 96 94 Oxygen Delivery Method 03/18/23 09:31 03/18/23 09:31 03/18/23 10:00 Temperature Pulse Rate 73 69 Respiratory Rate Blood Pressure 120/72 Pulse Oximetry 95 95 Oxygen Delivery Method 03/18/23 10:19 03/18/23 10:20 Temperature Pulse Rate 69 Respiratory Rate 14 Blood Pressure 126/63 Pulse Oximetry 98 Oxygen Delivery Method MDM - Neck Pain/Injury Lab Data Attestation: I reviewed the patient's lab results. 03/18/23 09:26 03/18/23 09:26 Labs: Lab Results 03/18/23 03/18/23 Range/Units 09: 09:26 WBC 8.7 (4.5-11.0) X10^3/uL RBC 4.46 (4.0-5.2) X10^6/uL Hgb 13.6 (12.0-16.0) g/dL Hct 39.6 (36-46) % MCV 88.8 (80-100) fL MCH 30.5 (26-34) PG MCHC 34.3 (30-36) % RDW 13.0 (11.6-14.8) % Plt Count 380 (150-400) X10^3/uL Neut % (Auto) 66.3 (50-75) % Lymph % (Auto) 25.0 (25-40) % [place] % (Auto) 6.3 (3-14) % Eos % (Auto) 1.7 L (2-4) % Baso % (Auto) 0.7 (0-2) % Neut # (Auto) 5700 (7217-8734) /uL Lymph # (Auto) 2200 (8025-4509) /uL [place] # (Auto) 500 (0-900) /uL Eos # (Auto) 200 (0-450) /uL Baso # (Auto) 100 (0-100) /uL Sodium 136 L (137-145) mmol/L Potassium 4.2 (3.4-5.1) mmol/L Chloride 103 (98-107) mmol/L Carbon Dioxide 26 (22-32) mmol/L BUN 16 (7-17) mg/dL Creatinine 0.55 (0.52-1.04) mg/dL Estimated GFR > 60 (>60) mL/min BUN/Creatinine Ratio 29.1 H (6-22) Glucose 117 H (70-100) mg/dL Calcium 9.1 (8.4-10.2) mg/dL Total Bilirubin 1.4 H (0.2-1.3) mg/dL AST 20 (14-36) IU/L ALT 18 (<35) IU/L Alkaline Phosphatase 76 (38-126) U/L Total Creatine Kinase 68 (30-135) U/L Troponin I < 0.012 (0.01-0.034) ng/mL Total Protein 7.3 (6.3-8.2) g/dL Albumin 4.3 (3.5-5.0) g/dL Globulin 3.0 (1.7-4.1) g/dL Albumin/Globulin Ratio 1.4 (1.0-2.8) Lipase 98 (23-300) U/L Imaging Data CT scan - head: Radiologist's Impression: PROCEDURE:? CT HEAD/BRAIN WO CON ? INDICATIONS:? Left-sided arm tingling ? TECHNIQUE:? Noncontrast 4.5 mm thick angled axial sections acquired from the foramen magnum to the vertex, with coronal and sagittal reformats.? For radiation dose reduction, the following was used:? automated exposure control, adjustment of mA and/or kV according to patient size.? ? COMPARISON:? None. ? FINDINGS:? Image quality:? Excellent.? ? CSF spaces:? Basal cisterns are patent.? No extra-axial fluid collections.? The ventricles are symmetric in size and shape.? ? Brain:? No intracranial bleeds or masses.? There is cerebral volume loss for age, with resultant ventricular and sulcal prominence.? There are periventricular and deep white matter chronic small vessel ischemic changes.? There is intracranial internal carotid artery atherosclerosis.? ? Skull and face:? Calvarium and visualized facial bones appear intact, without suspicious lesions.? ? Sinuses:? Visualized sinuses and mastoids are clear.? ? IMPRESSION:? No acute intracranial abnormality. ECG Data Attestation: I personally reviewed and interpreted this ECG as follows: Interpretation: Sinus rhythm Ventricular rate is 67 Normal axis Normal QRS Normal QTC No ST T wave changes MDM Narrative Medical decision making narrative: Patient has had symptoms since this morning. Her EKG is unremarkable. Troponin is negative. Does have discomfort with left-sided paraspinal cervical muscle tenderness. Do have low suspicion that this is ACS. Her head CT is negative. Low suspicion this is CVA. I suspect that this is a radicular symptom most likely from cervical muscle spasm. She does feel somewhat better after the Flexeril. Will discharge home with symptomatic treatment. She was given return precautions. She expressed understanding and agreement with plan. Discharge Plan Departure Patient Disposition: Home Clinical Impression: Neuropathy Instructions: DI for Cervical Muscle Strain Prescriptions: New cyclobenzaprine 10 mg tablet 10 mg PO TID PRN (Reason: muscle spasm) Qty: 14 0RF No Action albuterol sulfate 90 mcg/actuation aerosol powdr breath activated 2 inh inhalation Q4-6H PRN (Reason: asthma) Qty: 1 3RF [id number]-xzg-[id number]-FA-vit K [Adults Multivitamin] PO ascorbic acid (vitamin C) PO Immune System Vitamin PO Referrals: Dante Pickens DO [Primary Care Provider] - Stand Alone Forms: Patient Portal/API
--- NOTE | 2023-03-18 09:20 | DI.CT.S_ITS ---
PROCEDURE: CT HEAD/BRAIN WO CON INDICATIONS: Left-sided arm tingling TECHNIQUE: Noncontrast 4.5 mm thick angled axial sections acquired from the foramen magnum to the vertex, with coronal and sagittal reformats. For radiation dose reduction, the following was used: automated exposure control, adjustment of mA and/or kV according to patient size. COMPARISON: None. FINDINGS: Image quality: Excellent. CSF spaces: Basal cisterns are patent. No extra-axial fluid collections. The ventricles are symmetric in size and shape. Brain: No intracranial bleeds or masses. There is cerebral volume loss for age, with resultant ventricular and sulcal prominence. There are periventricular and deep white matter chronic small vessel ischemic changes. There is intracranial internal carotid artery atherosclerosis. Skull and face: Calvarium and visualized facial bones appear intact, without suspicious lesions. Sinuses: Visualized sinuses and mastoids are clear. IMPRESSION: No acute intracranial abnormality. Dictated by: Umair Jefferson M.D. on 03/18/2023 at 9:52 Approved by: Umair Jefferson M.D. on 03/18/2023 at 9:52
[2023-03-18 09:32] LABS: Add Manual Diff / Slide Review NO; Basophils Absolute Auto 100 /uL (0-100); Basophils Percent Auto 0.7 % (0-2); Eosinophils Absolute Auto 200 /uL (0-450); Eosinophils Percent Auto 1.7 % (2-4); Hematocrit 39.6 % (36-46); Hemoglobin 13.6 g/dL (12.0-16.0); Lymphocytes Absolute Auto 2200 /uL (1100-4500); Mean Corpuscular HGB Conc 34.3 % (30-36); Mean Corpuscular Hemoglobin 30.5 PG (26-34); Mean Corpuscular Volume 88.8 fL (80-100); Monocytes Absolute Auto 500 /uL (0-900); Monocytes Percent Auto 6.3 % (3-14); Neutrophils Absolute Auto 5700 /uL (1500-7000); Neutrophils Percent Auto 66.3 % (50-75); Platelet Count 380 X10^3/uL (150-400); Red Blood Cell Count 4.46 X10^6/uL (4.0-5.2); White Blood Cell Count 8.7 X10^3/uL (4.5-11.0)
[2023-03-18 09:50] LABS: Alanine Aminotransferase 18 IU/L (<35); Albumin 4.3 g/dL (3.5-5.0); Albumin Globulin Ratio 1.4 (1.0-2.8); Alkaline Phosphatase 76 U/L (38-126); Aspartate Aminotransferase 20 IU/L (14-36); BUN Creatinine Ratio 29.1 (6-22); Bilirubin Total 1.4 mg/dL (0.2-1.3); Blood Urea Nitrogen 16 mg/dL (7-17); Calcium 9.1 mg/dL (8.4-10.2); Carbon Dioxide 26 mmol/L (22-32); Chloride 103 mmol/L (98-107); Creatine Kinase 68 U/L (30-135); Estimated Glomerular Filt Rate > 60 mL/min (>60); Glucose 117 mg/dL (70-100); HEMOLYSIS < 15 (0-50); Lipase 98 U/L (23-300); Potassium 4.2 mmol/L (3.4-5.1); Sodium 136 mmol/L (137-145); Total Protein 7.3 g/dL (6.3-8.2)
[2023-03-18 10:02] LABS: Troponin I < 0.012 ng/mL (0.01-0.034)
[2023-03-18] MEDS: CYCLOBENZAPRINE 10 MG TABLET PO (10:17)
[2023-03-18] MEDS: KETOROLAC 30 MG/ML VIAL IV (10:17)
== END 2023-03-18 10:56 | disposition home or self-care (01) ==
PROVIDERS: Emergency Provider Emergency Medicine; PCP Family Medicine
DX: G62.9 Polyneuropathy, unspecified (principal)
CPT/HCPCS: 36415; 70450; 80053; 82550; 83690; 84484; 85025; 93005; 99284; J1885

== ENCOUNTER → 2023-09-22 09:41 | Outpatient (CLI) | payer OTHER, SELFPAY ==
--- NOTE | 2023-09-22 | DI.MG.S_ITS ---
BILATERAL DIGITAL SCREENING MAMMOGRAM 3D/2D WITH CAD: 09/22/2023 CLINICAL: Routine screening. Family history of breast cancer. Comparison is made to exams dated: 09/16/2022 mammogram, 10/27/2020 mammogram - [facility], 04/21/2015 mammogram, and 02/05/2013 mammogram - [facility]. Both breasts are heterogeneously dense, which may obscure small masses (category c / 51-75% glandular tissue). Current study was also evaluated with a Computer Aided Detection (CAD) system. No significant masses, calcifications, or other findings are seen in either breast. There has been no significant interval change. IMPRESSION: NEGATIVE There is no mammographic evidence of malignancy. A 1 year screening mammogram is recommended. Based on Tyrer-Cuzick model (a risk assessment model), the patient's lifetime risk is 27.5% and her 10 year risk is 11.9%. If a patient has an elevated risk, a more comprehensive evaluation should be considered and/or a referral to a genetic counselor. The [place] [employer], [place] [employer], and NCCN Guidelines advise the consideration of Breast MRI as an adjunct to screening mammography in patients whose Lifetime risk to develop breast cancer is 20% or higher. This exam was interpreted at Station ID: [id number]. NOTE: For mammograms, a report in lay terms will be sent to the patient. Approximately 15% of breast malignancies will not be visualized mammographically. In the management of a palpable breast mass, a negative mammogram must not discourage biopsy of a clinically suspicious lesion. Electronically Signed By: Be brody/mer:09/24/2023 08:19:09 letter sent: Normal Exam ACR BI-RADS Category 1: Negative [id number]
== END ==
PROVIDERS: PCP Family Medicine; Referring Provider Family Medicine; Visit Provider Family Medicine
DX: Z12.31 Encounter for screening mammogram for malignant neoplasm of breast (principal); Z80.3 Family history of malignant neoplasm of breast; R92.333 Mammographic heterogeneous density, bilateral breasts
CPT/HCPCS: 77063; 77067

== ENCOUNTER → 2023-11-07 13:09 | Outpatient (CLI) | payer OTHER, SELFPAY ==
--- NOTE | 2023-11-07 13:11 | DI.MRI.S_ITS ---
BREAST MRI OF BOTH BREASTS: 11/07/2023 CLINICAL: High risk screening. Family history of breast cancer. Comparison is made to exams dated: 09/22/2023 mammogram, 09/16/2022 mammogram, 10/27/2020 ultrasound, and 10/27/2020 mammogram - [facility]. INDICATIONS: Breasts dense, Secondary to first degree rel: breast cancer TECHNIQUE: The patient was placed prone in a dedicated breast imaging coil. Precontrast axial STIR and 3D FLASH without fat saturation sequences were obtained. Both before and after bolus injection of contrast, sequential 1-minute axial 3D FLASH with fat saturation sequences for 3 time points, with subtraction images and maximum intensity projections (MIP's) generated. Delayed sagittal FLASH images with fat saturation were also obtained. Computer-aided detection, including computer algorithm analysis of MRI image data for lesion detection and characterization, pharmacokinetic analysis, with further physician review for interpretation, was performed. FINDINGS: Image quality: Excellent. There is minimal background parenchymal enhancement. Heterogeneous fibroglandular elements are seen in both breasts. Right breast: No suspicious mass or abnormal non-mass enhancement. No significant axillary or internal mammary lymphadenopathy. Left breast: No suspicious mass or abnormal non-mass enhancement. No significant axillary or internal mammary lymphadenopathy. Miscellaneous: Included portions of the anterior chest wall and upper abdomen demonstrate no significant abnormality. IMPRESSION: NEGATIVE No MR evidence of malignancy in the right or left breast. No significant axillary or internal mammary lymphadenopathy. BIRADS 1: Negative. Recommend continued annual high risk screening schedule with annual mammograms and annual breast MRI on alternating 6 month basis. COMMENT: The imaging literature indicates that a negative contrast breast MRI examination has a high sensitivity and a moderate specificity for detecting and excluding invasive carcinomas to a detection threshold of 3-5 mm; nonetheless, appropriate clinical and mammographic follow-up are recommended. MRI is not sensitive for detecting DCIS (ductal carcinoma in situ) and may not detect large invasive neoplasms that show only minimal enhancement such as mucinous carcinoma. If there are suspicious calcifications or clinically worrisome palpable masses, then biopsy should still be considered. Invasive neoplasms can be hidden by co-existent and benign enhancement caused by mastitis, hormone therapy effects, radiation therapy, , and recent biopsy or surgery. False positive examinations can occur in a number of circumstances, including breasts that have recently been subject to invasive procedures and those that contain atypical ductal hyperplasia, hormonally stimulated glandular tissue, fat necrosis, or radial scars. A 1 year screening mammogram and a breast MRI is recommended. Future imaging is recommended as follows: 09/22/2024 screening mammogram. This exam was interpreted at Station ID: [id number]. Electronically Signed By: Shyam Norton M.D. ar/:11/07/2023 20:22:29 letter sent: Normal Exam ACR BI-RADS Category 1: Negative [id number]
== END ==
LOC: MRI 13:09
PROVIDERS: PCP Family Medicine; Referring Provider Family Medicine; Visit Provider Family Medicine
DX: R92.333 Mammographic heterogeneous density, bilateral breasts (principal); Z80.3 Family history of malignant neoplasm of breast
CPT/HCPCS: 77049; A9579

== ENCOUNTER → 2023-11-30 08:15 | Outpatient (CLI) | payer OTHER, SELFPAY ==
[2023-11-30 09:00] LABS: Hemoglobin A1C% w Est Avg Glu 6.4 % (4.0-6.0)
[2023-11-30 09:12] LABS: Alanine Aminotransferase 15 IU/L (<35); Albumin 4.3 g/dL (3.5-5.0); Albumin Globulin Ratio 1.7 (1.0-2.8); Alkaline Phosphatase 73 U/L (38-126); Aspartate Aminotransferase 25 IU/L (14-36); BUN Creatinine Ratio 22.4 (6-22); Bilirubin Total 1.7 mg/dL (0.2-1.3); Blood Urea Nitrogen 13 mg/dL (7-17); Calcium 8.5 mg/dL (8.4-10.2); Carbon Dioxide 28 mmol/L (22-32); Chloride 106 mmol/L (98-107); Cholesterol 248 mg/dL (140-199); Estimated Glomerular Filt Rate > 60 mL/min (>60); Globulin 2.6 g/dL (1.7-4.1); Glucose 130 mg/dL (80-110); HDL Cholesterol 44 mg/dL (40-60); HEMOLYSIS < 15 (0-50); LDL Cholesterol Calculated 165 mg/dL (<100); Potassium 4.2 mmol/L (3.4-5.1); Sodium 139 mmol/L (137-145); Total Protein 6.9 g/dL (6.3-8.2); Triglycerides 195 mg/dL (35-150)
[2023-11-30 09:44] LABS: TSH w/ Reflex to FT4 0.93 uIU/mL (0.47-4.68)
== END ==
PROVIDERS: PCP Family Medicine; Referring Provider Family Medicine; Visit Provider Family Medicine
DX: R73.9 Hyperglycemia, unspecified (principal); E78.5 Hyperlipidemia, unspecified; R73.03 Prediabetes
CPT/HCPCS: 36415; 80053; 80061; 83036; 84443